=== PATIENT | female | born 1965 | race Caucasian/White ===

== ENCOUNTER 2023-03-08 15:08 | Observation (INO) | payer MEDICARE, MEDICAID ==
[~2023-03-08] VITALS: Ht 162.6 cm; Wt 72.7 kg
[2023-03-08 16:15] LABS: BASOPHILS % (AUTO) 0.4 % (0-1); EOSINOPHILS # (AUTO) 0.2 X10'3 (0-0.9); EOSINOPHILS % (AUTO) 1.9 % (0-6); HEMATOCRIT 38.4 % (35.0-45.0); HEMOGLOBIN 13.1 g/dl (12.0-16.0); LYMPHOCYTES % (AUTO) 31.2 % (21-51); MEAN CORPUSCULAR HEMOGLOBIN 34.4 PG (27.0-31.0); MEAN CORPUSCULAR HGB CONC 34.1 g/dL (33.0-36.5); MEAN CORPUSCULAR VOLUME 100.9 FL (78-98); MEAN PLATELET VOLUME 7.3 FL (7.4-10.4); MONOCYTES # (AUTO) 0.7 X10'3 (0-0.9); MONOCYTES % (AUTO) 5.4 % (2-12); NEUTROPHILS # (AUTO) 7.9 X10'3 (1.8-7.7); NEUTROPHILS % (AUTO) 61.1 % (42-75); PLATELET COUNT 283 X10'3 (140-440); RED BLOOD COUNT 3.81 X10'6 (4.20-5.60); RED CELL DISTRIBUTION WIDTH 14.5 % (11.5-14.5); WHITE BLOOD COUNT 12.9 X10'3 (4.5-11.0)
[2023-03-08 16:26] LABS: ALANINE AMINOTRANSFERASE 29 U/L (12-78); ALBUMIN 3.6 G/DL (3.4-5.0); ALKALINE PHOSPHATASE 134 IU/L (46-116); ANION GAP 12 (8-16); ASPARTATE AMINO TRANSFERASE 25 U/L (10-37); BILIRUBIN,TOTAL 0.3 MG/DL (0.1-1.0); BLOOD UREA NITROGEN 13 MG/DL (7-18); BUN/CREATININE RATIO 30.2 (10.0-20.0); CALCIUM 8.6 MG/DL (8.5-10.1); CHLORIDE 102 MMOL/L (99-107); CREATININE 0.43 MG/DL (0.40-0.90); GLUCOSE 89 MG/DL (70-104); POTASSIUM 3.9 MMOL/L (3.5-5.1); SODIUM 138 MMOL/L (135-145); TOTAL CARBON DIOXIDE 24.5 MMOL/L (24-32); TOTAL PROTEIN 7.1 G/DL (6.4-8.2); eCRCL 123 ML/MIN; eGFR > 90 ML/MIN
[2023-03-08 16:34] LABS: PRO BRAIN NATRIURETIC PEPTIDE 37 PG/ML (0-125)
[2023-03-08] MEDS ORDERED: magnesium Cl slow-release 64mg tablet PO PRN (18:10)
[2023-03-08] MEDS ORDERED: potassium Cl 20 mEq SR tablet PO PRN ×2 (18:10)
[2023-03-08] MEDS ORDERED: magnesium 4gm in 100ml NS 100 ML IV PRN (18:10)
[2023-03-08] MEDS ORDERED: ondansetron/PF 4mg/2ml inj IV PRN (18:10)
[2023-03-08] MEDS ORDERED: potassium Cl 40MEQ/1/2NS 520ml 520 ML IV PRN (18:10)
[2023-03-08] MEDS ORDERED: magnesium 2GM in 50ml NS 50 ML IV PRN (18:10)
[2023-03-08] MEDS ORDERED: aminophylline 250mg/10ml inj. IV PRN (18:20)
[2023-03-08] MEDS ORDERED: metoprolol tartrate 1mg/ml inj IV PRN (18:20)
[2023-03-08] MEDS ORDERED: regadenoson 0.4mg/5ml syringe IV PRN (18:20)
[2023-03-08] MEDS ORDERED: nitroGLYCERIN 0.4mg SUBLingual tab SL PRN (18:20)
[2023-03-08] MEDS: K and/or MAG REPLACEMENT MC SCH (19:09)
[2023-03-08] MEDS ORDERED: GABA-530 PO (23:25)
[2023-03-08] MEDS ORDERED: MIRT-88 PO (23:25)
[2023-03-08] MEDS ORDERED: DICL-212 PO (23:25)
[2023-03-08] MEDS ORDERED: CYCL-1 (23:25)
[2023-03-08] MEDS ORDERED: LEVE500T PO (23:25)
[2023-03-08] MEDS ORDERED: TRAM50TA2 PO (23:25)
[2023-03-08] MEDS ORDERED: QUET100T34 PO (23:25)
[2023-03-08] MEDS ORDERED: ALBUTEROL (23:25)
[2023-03-08] MEDS: ipratropium/albuterol 3ml nebule NEB SCH (23:25)
[2023-03-08 23:26] VITALS: PULSE 83; RESP 18; O2SAT 97
[2023-03-08 23:31] VITALS: PULSE 81; RESP 18
[2023-03-08] MEDS ORDERED: acetaminophen 325mg tablet PO PRN (23:35)
[2023-03-08] MEDS: morphine 2 MG/ML inj. syringe IV PRN (23:37)
[2023-03-08] MEDS ORDERED: gabapentin 400mg capsule PO SCH (23:45)
[2023-03-08] MEDS ORDERED: QUEtiapine 25mg tablet PO SCH (23:45)
[2023-03-08] MEDS ORDERED: gabapentin 100mg capsule PO SCH (23:46)
[2023-03-08] MEDS ORDERED: mirtazapine 15mg tablet PO SCH (23:50)
[2023-03-09] VITALS (19 sets, daily range): BP systolic 97–127; BP diastolic 61–96; PULSE 83–111; RESP 14–19; TEMP 97.5–98.2; O2SAT 92–99
[2023-03-09] MEDS ORDERED: enoxaparin 100mg/ml syringe SUBCUT ONE
[2023-03-09] MEDS ORDERED: enoxaparin 80mg/0.8ml syringe SUBCUT ONE (00:05)
[2023-03-09] MEDS: levetiracetam 250mg tablet PO SCH ×2 (00:27→08:42)
[2023-03-09] MEDS: ipratropium/albuterol 3ml nebule NEB SCH ×4 (03:00→15:08)
[2023-03-09] MEDS: morphine 2 MG/ML inj. syringe IV PRN ×4 (04:43→16:28)
[2023-03-09] MEDS: K and/or MAG REPLACEMENT MC SCH (08:00)
[2023-03-09] MEDS ORDERED: CYCL-394 PO (08:03)
[2023-03-09] MEDS ORDERED: cyclobenzaprine 10mg tablet PO PRN (08:05)
[2023-03-09] MEDS ORDERED: traMADol 50MG tablet PO PRN (08:05)
[2023-03-09] MEDS ORDERED: CYCL-1 PO (08:05)
[2023-03-09] MEDS ORDERED: DICLOFENAC SODIUM 75 MG PO PRN (08:05)
[2023-03-09] MEDS ORDERED: gabapentin 100mg capsule PO SCH ×2 (08:15→20:00)
[2023-03-09 08:28] LABS: BASOPHILS # (AUTO) 0.1 X10'3 (0-0.2); BASOPHILS % (AUTO) 0.6 % (0-1); EOSINOPHILS # (AUTO) 0.2 X10'3 (0-0.9); EOSINOPHILS % (AUTO) 1.9 % (0-6); HEMATOCRIT 38.9 % (35.0-45.0); LYMPHOCYTES # (AUTO) 2.9 X10'3 (1.1-4.8); LYMPHOCYTES % (AUTO) 29.5 % (21-51); MEAN CORPUSCULAR HEMOGLOBIN 33.9 PG (27.0-31.0); MEAN CORPUSCULAR HGB CONC 33.5 g/dL (33.0-36.5); MEAN CORPUSCULAR VOLUME 101.2 FL (78-98); MEAN PLATELET VOLUME 7.6 FL (7.4-10.4); MONOCYTES # (AUTO) 0.5 X10'3 (0-0.9); MONOCYTES % (AUTO) 5.1 % (2-12); NEUTROPHILS # (AUTO) 6.3 X10'3 (1.8-7.7); NEUTROPHILS % (AUTO) 62.9 % (42-75); PLATELET COUNT 232 X10'3 (140-440); RED BLOOD COUNT 3.84 X10'6 (4.20-5.60); RED CELL DISTRIBUTION WIDTH 14.5 % (11.5-14.5)
[2023-03-09 08:52] LABS: ALBUMIN 3.4 G/DL (3.4-5.0); BLOOD UREA NITROGEN 10 MG/DL (7-18); BUN/CREATININE RATIO 23.8 (10.0-20.0); CALCIUM 9.3 MG/DL (8.5-10.1); CHLORIDE 103 MMOL/L (99-107); CREATININE 0.42 MG/DL (0.40-0.90); GLUCOSE 77 MG/DL (70-104); MAGNESIUM 1.5 MG/DL (1.5-2.4); POTASSIUM 3.9 MMOL/L (3.5-5.1); TOTAL CARBON DIOXIDE 27.7 MMOL/L (24-32); eCRCL 126 ML/MIN; eGFR > 90 ML/MIN
[2023-03-09 09:02] LABS: ANION GAP 10 (8-16); SODIUM 141 MMOL/L (135-145)
[2023-03-09] MEDS ORDERED: METO-395 PO (15:23)
[2023-03-09] MEDS ORDERED: LISI10TA27 PO (15:23)
[2023-03-09] MEDS ORDERED: LEVETIRACETAM PO SCH (20:00)
[2023-03-09] MEDS ORDERED: quetiapine 100mg tablet PO SCH (21:00)
[2023-03-09] MEDS ORDERED: mirtazapine 15mg tablet PO SCH (21:00)
== END 2023-03-09 17:47 | disposition home or self-care (01) ==
LOC: ER 15:09 → ED HOLD 18:19 → EDBEDREQ 03-09 01:25 → PCU 3S 03-09 01:54
PROVIDERS: ADMIT Internal Medicine; ATTEND Internal Medicine
DX: I20.9 Angina pectoris, unspecified (principal); I16.1 Hypertensive emergency; J44.1 Chronic obstructive pulmonary disease with (acute) exacerbation; M19.90 Unspecified osteoarthritis, unspecified site; G40.909 Epilepsy, unspecified, not intractable, without status epilepticus; F41.0 Panic disorder [episodic paroxysmal anxiety]; F17.210 Nicotine dependence, cigarettes, uncomplicated; F20.9 Schizophrenia, unspecified; F31.9 Bipolar disorder, unspecified; G89.4 Chronic pain syndrome; I10 Essential (primary) hypertension; I21.4 Non-ST elevation (NSTEMI) myocardial infarction; Z87.820 Personal history of traumatic brain injury; Z90.49 Acquired absence of other specified parts of digestive tract; Z96.649 Presence of unspecified artificial hip joint; Z98.82 Breast implant status; Z79.899 Other long term (current) drug therapy
CPT/HCPCS: 36415; 71045; 78452; 80048; 80053; 83735; 83880; 84484; 85025; 87081; 93005; 93017; 94640; 94760; 96374; 96376; 99285; A9500; G0378; J1650; J2270; J2785; 96372